=== PATIENT | male | born 1990 | race American Indian/Alaskan Native ===

== ENCOUNTER 2018-05-16 11:47 | Emergency (ER) | payer SELFPAY ==
[2018-05-16 12:19] VITALS: TEMP 98.8
--- NOTE | 2018-05-16 12:35 | ED PDOC ---
Arrival/HPI - General Chief Complaint: ENT Problem Time Seen by Provider: 05/16/18 12:05 Historian: Patient - History of Present Illness Narrative History of Present Illness (Text): 05/16/18 12:32 Pt is a 28 yo M with no significant PMH presents to the ED due to right ear pain. Patient states that 5 days ago he was trying to clean his ears with q-tips , but thought he pushed the q-tip in too far and punctured his ear drum. Patient states that pain is constant and throbbing. He states that it sounds like there is liquid in his ear. Patient denies any discharge, recent illness, sick contacts, sinus congestion, sore throat, fever, chills, LEE, or dizziness. Time/Duration: < week Symptom Onset: Sudden Symptom Course: Unchanged Quality: Throbbing Past Medical History - Provider Review Nursing Documentation Reviewed: Yes - Psychiatric Hx Psychophysiologic Disorder: No Hx Substance Use: No - Surgical History Hx Tonsillectomy: Yes Family/Social History - Physician Review Nursing Documentation Reviewed: Yes Family/Social History: No Known Family HX Smoking Status: Heavy Smoker > 10 Cigarettes Daily Hx Alcohol Use: Yes Frequency of alcohol use: Socially Hx Substance Use: No Allergies/Home Meds Allergies/Adverse Reactions: Allergies No Known Allergies Allergy (Verified 05/16/18 12:15) Home Medications: Home Meds Medication Instructions Recorded Confirmed No Known Home Med 05/16/18 05/16/18 Review of Systems - Review of Systems Constitutional: Normal Eyes: Normal ENT: Other (right ear pain) Respiratory: Normal Cardiovascular: Normal Gastrointestinal: Normal Genitourinary Male: Normal Musculoskeletal: Normal Skin: Normal Neurological: Normal Endocrine: Normal Hemo/Lymphatic: Normal Psychiatric: Normal Physical Exam Vital Signs Temp Pulse Resp BP Pulse Ox 05/16/18 12:15 98.8 F 90 16 128/80 96 Temperature: Afebrile Blood Pressure: Normal Pulse: Regular Respiratory Rate: Normal Appearance: Positive for: Non-Toxic Pain Distress: Moderate Mental Status: Positive for: Alert and Oriented X 3 - Systems Exam Head: Present: Atraumatic, Normocephalic Pupils: Present: PERRL Extroacular Muscles: Present: EOMI Conjunctiva: Present: Normal Ears: Present: Other (Cerumen impaction b/l obscures view of TM, no signs of canal erythema or discharge) Mouth: Present: Moist Mucous Membranes Neck: Present: Normal Range of Motion Respiratory/Chest: Present: Clear to Auscultation, Good Air Exchange. No: Respiratory Distress, Accessory Muscle Use Cardiovascular: Present: Regular Rate and Rhythm, Normal S1, S2. No: Murmurs Abdomen: No: Tenderness, Distention, Peritoneal Signs Back: Present: Normal Inspection Upper Extremity: Present: Normal Inspection. No: Cyanosis, Edema Lower Extremity: Present: Normal Inspection. No: Edema Neurological: Present: GCS=15, CN II-XII Intact, Speech Normal Skin: Present: Warm, Dry, Normal Color. No: Rashes Psychiatric: Present: Alert, Oriented x 3, Normal Insight, Normal Concentration Medical Decision Making ED Course and Treatment: 05/16/18 12:36 28 yo M presents with R ear pain 2/2 cerumen impaction. Plan: - Cerumen extraction from right ear with curette - Recommend Debrox to both ears - Medically stable for discharge - Follow up with PMD Disposition/Present on Arrival - Present on Arrival Any Indicators Present on Arrival: No History of DVT/PE: No History of Uncontrolled Diabetes: No Urinary Catheter: No History of Decub. Ulcer: No History Surgical Site Infection Following: None - Disposition Have Diagnosis and Disposition been Completed?: Yes Diagnosis: Cerumen impaction Disposition: HOME/ ROUTINE Disposition Time: 13:20 Patient Plan: Discharge Patient Problems: Current Active Problems Problem Status Onset Cerumen impaction Acute Condition: STABLE Discharge Instructions (ExitCare): Ear Wax Impaction (DC) Additional Instructions: 1. Use debrox as instructed a. tilt head sideways b. place 5 to 10 drops into ear c. tip of applicator should not enter ear canal d. keep drops in ear for several minutes by keeping head tilted or placing cotton in the ear e. use twice daily for up to four days if needed, or as directed by a doctor f. any wax remaining after treatment may be removed by gently flushing the ear with warm water, using a soft rubber bulb ear syringe 2. Return to ED or follow up with PMD if symptoms worsen [employer], thank you for letting us take care of you today. Your provider was Jai Sears MD and you were treated for EAR PAIN(R). The emergency medical care you received today was directed at your acute symptoms. If you were prescribed any medication, please fill it and take as directed. It may take several days for your symptoms to resolve. Return to the Emergency Department if your symptoms worsen, do not improve, or if you have any other problems. Please contact your doctor or call one of the physicians/clinics you have been referred to that are listed on the Patient Visit Information form that is included in your discharge packet. Bring any paperwork you were given at discharge with you along with any medications you are taking to your follow up visit. Our treatment cannot replace ongoing medical care by a primary care provider outside of the emergency department. Thank you for allowing the [facility] team to be part of your care today. Prescriptions: Carbamide Peroxide [Debrox] 5 drop OD QID #1 bottle Forms: [employer] ([place]i)
[2018-05-16 13:21] VITALS: BP 124/80; PULSE 76; RESP 18; O2SAT 100
== END 2018-05-16 13:21 | disposition home or self-care (01) ==
LOC: ED 11:47 → MERGE 11:47 → ED 13:21
DX: H61.21 Impacted cerumen, right ear (principal); F17.210 Nicotine dependence, cigarettes, uncomplicated